=== PATIENT | female | born 1975 | race Caucasian/White ===

== ENCOUNTER 2021-02-14 14:52 | Emergency (ER) | payer OTHER ==
[~2021-02-14] VITALS: Ht 175.3 cm; Wt 109.0 kg
--- NOTE | 2021-02-14 17:21 | PHYS DOC ---
Past Medical History Past Surgical History: Other Additional Past Surgical Histo: KNEE SCOPE, IUD, D & C Smoking Status: Current Every Day Smoker Alcohol Use: Occasionally General Adult EDM: Chief Complaint: LOWEREXTREMITY INJURY HPI: HPI: Patient is a 45-year-old female presents emerged department complaining of left pinky toe pain, reports she was walking barefoot into her bathroom when she accidentally kicked the door jam, patient thinks she may have broken her toe. Patient reports this happening approximately 2 and half hours ago. Has not taken any pain medication for a 6-7 out of 10 pain. Reports her thinking toe is bent out sideways. Did not take prescription or pwyi-xwv-[id number] pain medications for her pain. Has not tried nonpharmacological pain relief therapies prior to the ER visit today. Patient reports her last menstrual cycle 5 years ago when she had her IUD placed. Patient denies other physical complaints or physical concerns. Review of Systems: Review of Systems: 14 body systems of review of systems have been reviewed. See HPI for pertinent positives and negative responses, otherwise all other systems are negative, nonpertinent or noncontributory. Constitutional: Negative except as outlined in HPI above. Skin: Negative except as outlined in HPI above. Eyes: Negative except as outlined in HPI above. HENT: Negative except as outlined in HPI above. Respiratory: Negative except as outlined in HPI above. Cardiovascular: Negative except as outlined in HPI above. GI: Negative except as outlined in HPI above. : Negative except as outlined in HPI above. Musculoskeletal: Negative except as outlined in HPI above. Integument: Negative except as outlined in HPI above. Neurologic: Negative except as outlined in HPI above. Endocrine: Negative except as outlined in HPI above. Lymphatic: Negative except as outlined in HPI above. Psychiatric: Negative except as outlined in HPI above. Heart Score: C/O Chest Pain: No Risk Factors: Risk Factors: DM, Current or recent (<one month) smoker, HTN, HLP, family history of CAD, obesity. Risk Scores: Score 0 - 3: 2.5% MACE over next 6 weeks - Discharge Home Score 4 - 6: 20.3% MACE over next 6 weeks - Admit for Clinical Observation Score 7 - 10: 72.7% MACE over next 6 weeks - Early Invasive Strategies Allergies: Allergies: Allergies Coded Allergies Type Severity Reaction Last Updated Verified No Known Drug Allergies 02/14/21 No Physical Exam: PE: Constitutional: Well developed, well nourished, no acute distress, non-toxic appearance. 45-year-old female in no apparent distress. HENT: Normocephalic, atraumatic. Eyes: Conjunctiva normal, no discharge. Neck: Normal range of motion, no stridor. Cardiovascular: No cyanosis appreciated, distal cap refill less than 2 seconds. Lungs & Thorax: Patient is in no respiratory distress, no audible adventitious lung sounds appreciated. Abdomen: Nontender, no abnormalities noted. Skin: Warm, dry, no erythema, no rash. Back: No tenderness, no deformities. Extremities: No tenderness, no cyanosis, no clubbing, ROM intact, no edema. Except for left pinky toe, deformity present, limited passive range of motion related to pain. Distal cap refill less than 2 seconds, bruising to MIP joint skin is intact. No loss of sensation. 2+ dorsalis pedis/posterior tibial pulse of the left. No swelling or edema present. Neurologic: Alert and oriented X 3, normal motor function, normal sensory function, no focal deficits noted. Psychologic: Affect normal, judgement normal, mood normal. Current Patient Data: Vital Signs: Vital Signs Date Time Temp Pulse Resp B/P (MAP) Pulse Ox O2 Delivery O2 Flow Rate FiO2 02/14/21 16:51 98.1 81 18 129/71 (90) 99 Room Air 98.1 EKG: EKG: [] Radiology/Procedures: Radiology/Procedures: STATUS: REG ER ORD. PHYSICIAN: SIGRID BUTLER APRN REASON: Attention pinky toe, deformity after blunt trauma PROCEDURE: TOES LEFT EXAMINATION: Left fifth digit radiograph. VIEWS: 3 COMPARISON: None INDICATION:45 years, Female, blunt trauma. FINDINGS IMPRESSION: Acute nondisplaced fracture in the head of fifth proximal phalanx, possibly extends to the articular surface. Diffuse soft tissue swelling about the fifth digit. No dislocation or subluxation. Electronically signed by: Barron Lainez MD (02/14/2021 7:17 PM) [facility] Course & Med Decision Making: Course & Med Decision Making Pertinent Labs and Imaging studies reviewed. (See chart for details) 45-year-old female, vital signs reviewed, presents emergency department concerning left pinky toe pain after kicking a door jam while barefoot while walking into her bathroom. Physical examination concerning for dislocation versus fracture versus fracture dislocation of the left pinky toe peer will ord er x-ray imaging, give p.o. pain medications. Ice packs. X-ray imaging interpreted by house radiologist concerning for nondisplaced fracture distal fifth phalanx left foot. Discussed findings with patient, maribel taped patient with maribel tape instructions. Patient gave verbal understanding of this. Patient reports this elicited some acute pain she went from a 1 out of 10 to a 6 out of 10. Discussed with patient will give 1 [place] prior to discharge for pain control. Discussed with patient will prescribe pain medication for home use. Will order postop shoe. Discussed with patient postop shoe use. Strict follow-up with podiatry, call tomorrow for appointment. Discussed ice and elevation 30 minutes on 30 minutes off while awake for the next 48 to 72 hours. Return to ER precautions and concerns. Patient is amenable to and gave verbal stenting of ED discharge instructions. Diagnosis left pinky toe fracture. Discussed with the patient all findings and diagnostic testing as well as the need to follow-up with their primary care provider for further evaluation and treatment or return to the ED if any new or worsening symptoms. Strict return precautions were also discussed at length, the patient voiced understanding and agreement with the discharge planning. The patient was nontoxic in appearance, in no apparent distress, and hemodynamically stable at the time of disposition. Sabrina Disclaimer: Sabrina Disclaimer: This electronic medical record was generated, in whole or in part, using a voice recognition dictation system. Departure Departure Impression: Primary Impression: Fracture of fifth toe, left, closed Qualified Codes: S92.502A - Displaced unspecified fracture of left lesser toe(s), initial encounter for closed fracture Disposition: 01 HOME / SELF CARE / HOMELESS Condition: GOOD Referrals: NO PCP (PCP) ELISEO PENN DPM Patient Instructions: Maribel Taping of Toes, Toe Fracture Additional Instructions: You were seen today in emergency department after jamming your left pinky toe into a door jam while walking into your bathroom. An x-ray was performed which showed you have broken your pinky toe. You were given pain medication today in the emergency department. You were treated with an ice pack as well. UNI discussed maribel taping, you were shown how to maribel tape your toes together to help hold the toe in place. You were given a postop shoe to wear, please wear this until otherwise told by a wildlife removal specialist or a medical office manager. I have given information for a podiatry specialist for you to follow-up with attached t o this document, please call tomorrow for an appointment. You may use any wildlife removal specialist or medical office manager of your choice. Please ice and elevate as we discussed 30 minutes on and 30 minutes off for the next 48 to 72 hours. Return to the emergency department for worsening symptoms or other concerns. Discussed with the patient all findings and diagnostic testing as well as the need to follow-up with their primary care provider for further evaluation and treatment or return to the ED if any new or worsening symptoms. Strict return precautions were also discussed at length, the patient voiced understanding and agreement with the discharge planning. The patient was nontoxic in appearance, in no apparent distress, and hemodynamically stable at the time of disposition. EMERGENCY DEPARTMENT GENERAL DISCHARGE INSTRUCTIONS Thank you for coming to [facility] Emergency Department (ED) today and trusting us with you care. We trust that you had a positive experience in our Emergency Department. If you wish to speak to the department management, you may call the Director at [phone]. YOUR FOLLOW UP INSTRUCTIONS ARE FOLLOWS: 1. Do you have a private Doctor? If you do not have a private doctor, please ask for a resource list of physicians or clinics that may be able to assist you with follow up care. 2. The Emergency Physicain has interpreted your x-rays. The X-Ray specialist will also review them. If there is a change in the findings, you will be notified in 48 hours when at all possible. 3. A lab test or culture has been done, your results will be reviewed and you will be notified if you need a change in treatment. ADDITIONAL INSTRUCTIONS AND INFORMATION: 1. Your care today has been supervised by a physician who is specially trained in emergency care. Many problems require more than one evaluation for a complete diagnosis and treatment. We recommend that you schedule your follow up appointment as recommended to ensure complete treatment of you illness or injury. If you are unable to obtain follow up care and continue to have a problem, or if your condition worsens, we recommend that you return to the ED. 2. We are not able to safely determine your condition over the phone nor are we able to give sound medical advice over the phone. For these safety reasons, if you call for medical advice we will ask you to come to the ED for further evaluation. 3. If you have any questions regarding these discharge instructions please call the ED at [phone]. SAFETY INFORMATION: In the interest of safety, wellness, and injury prevention; we encourage you to wear your sealbelt, if you smoke; quite smoking, and we encourage family to use a protective helmet for bicycling and other sporting events that present an increased risk for head injury. IF YOUR SYMPTOMS WORSEN OR NEW SYMPTOMS DEVELOP, OR YOU HAVE CONCERNS ABOUT YOUR CONDITION; OR IF YOUR CONDITION WORSENS WHILE YOU ARE WAITING FOR YOUR FOLLOW UP APPOINTMENT; EITHER CONTACT YOUR PRIMARY CARE DOCTOR, THE PHYSICIAN WHOSE NAME AND NUMBER YOU WERE GIVEN, OR RETURN TO THE ED IMMEDIATELY. Scripts Hydrocodone Bit/Acetaminophen (HYDROCODONE-APAP 5-325 ) 1 Tab Tablet 1 TAB PO PRN Q6HRS PRN for PAIN, #10 TAB 0 Refills Prov: SIGRID BUTLER APRN 02/14/21 Ibuprofen (IBUPROFEN) 600 Mg Tablet 600 MG PO PRN Q6HRS PRN for INFLAMMATION, #30 TAB 0 Refills Prov: SIGRID BUTLER APRN 02/14/21 SIGRID BUTLER APRN Feb 14, 2021 17:21
[2021-02-14] MEDS ORDERED: IBUPROFEN 200 MG TABLET. PO ONE (17:30)
[2021-02-14] MEDS ORDERED: HYDROcodone/APAP 5/325MG 1 TAB TABLET PO ONE (17:30)
--- NOTE | 2021-02-14 19:20 | RAD ---
EXAMINATION: Left fifth digit radiograph. VIEWS: 3 COMPARISON: None INDICATION:45 years, Female, blunt trauma. FINDINGS IMPRESSION: Acute nondisplaced fracture in the head of fifth proximal phalanx, possibly extends to the articular surface. Diffuse soft tissue swelling about the fifth digit. No dislocation or subluxation. Electronically signed by: Barron Lainez MD (02/14/2021 7:17 PM) [facility]
[2021-02-14 19:42] VITALS: BP 118/81
[2021-02-14] MEDS ORDERED: HYDROcodone/APAP 7.5/325MG 1 TAB TABLET PO ONE (19:45)
[2021-02-14] MEDS ORDERED: HYDR-2761 PO (19:47)
[2021-02-14] MEDS ORDERED: IBUP-1007 PO (19:47)
== END 2021-02-14 19:52 | disposition home or self-care (01) ==
LOC: ER 14:52
DX: S92.502A Displaced unspecified fracture of left lesser toe(s), initial encounter for closed fracture (principal); F17.200 Nicotine dependence, unspecified, uncomplicated; W22.8XXA Striking against or struck by other objects, initial encounter; Y93.01 Activity, walking, marching and hiking; Y92.89 Other specified places as the place of occurrence of the external cause; Y99.8 Other external cause status
CPT/HCPCS: 73660; 99285-25